=== PATIENT | female | born 1990 | race American Indian/Alaskan Native ===

== ENCOUNTER 2019-07-07 17:12 | Emergency (ER) | payer OTHER ==
[2019-07-07 19:21] LABS: Bilirubin,Urine NEG (Negative); Blood,Urine NEG (Negative); Color,Urine Yellow (Yellow); Hyaline Casts,Urine 1 /LPF; Mucus,Urine 3+ /HPF; Urobilinogen,Urine < 2.0 mg/dL (<2.0)
[2019-07-07 21:25] VITALS: BP 130/92
[2019-07-07] MEDS ORDERED: DICYCLOMINE 20 MG TAB PO ONE (22:11)
[2019-07-07] MEDS ORDERED: ONDANSETRON 4 MG ODT TAB PO ONE (22:11)
[2019-07-07] MEDS ORDERED: FAMOTIDINE 20 MG TAB PO ONE (22:11)
[2019-07-07 22:42] LABS: Hematocrit 36.3 % (30.3-42.9); Hemoglobin 11.7 gm/dl (10.1-14.3); Mean Corpuscular HGB Conc 32 % (30-34); Mean Corpuscular Volume 92 fl (79-97); Platelet Count 302 K/mm3 (140-440); Red Blood Count 3.96 M/mm3 (3.65-5.03); Red Cell Distribution Width 13.1 % (13.2-15.2)
[2019-07-07 22:57] LABS: Alanine Aminotransferase 7 units/L (7-56); Albumin 4.1 g/dL (3.9-5); BUN/Creatinine Ratio 17; Blood Urea Nitrogen 10 mg/dL (7-17); Hemolysis Index 24
[2019-07-07 23:20] LABS: Platelet Estimate Consistent w Auto; RBC Morphology Normal; Total Cells Counted 100
--- NOTE | 2019-07-08 04:00 | Ultrasound Report ---
ULTRASOUND ABDOMEN, LIMITED (RIGHT UPPER QUADRANT) INDICATION: Right upper quadrant pain COMPARISON: None available. FINDINGS: Pancreas: Visualized portion shows no significant abnormality. Liver: Normal. Gallbladder: Normal. Bile ducts: Normal. Common Bile Duct measures 3 mm. Free fluid: None. Additional Findings: None. IMPRESSION: 1. No sonographic abnormality of the right upper quadrant. Signer Name: Tito Bruno MD Signed: 07/08/2019 3:56 AM Workstation Name: [id number]
--- NOTE | 2019-07-08 04:01 | Ultrasound Report ---
Pelvic ultrasound with Doppler INDICATION: Pelvic pain FINDINGS: No significant free pelvic fluid. The uterus measures 7 x 4 x 3 cm with endometrial thickne ss measuring about 10 mm. Both ovaries contain multiple cystic lesions. One of the largest is located within the right ovary measuring 5.5 cm in greatest diameter. Normal Doppler flow is noted within julián th ovaries IMPRESSION: Large, moderately complex right ovarian cyst measuring 5.5 cm in diameter. Several smalle r minimally complex cyst are present within the left ovary. No evidence of ovarian torsion. Signer Name: Tito Bruno MD Signed: 07/08/2019 3:57 AM Workstation Name: [id number]
[2019-07-08] MEDS ORDERED: ACETAMINOPHEN 500 MG TAB PO ONE (04:46)
[2019-07-08] MEDS ORDERED: KETOROLAC 30 MG/1 ML INJ IM ONE (04:46)
--- NOTE | 2019-07-08 04:49 | Emergency Department Report ---
ED Abdominal Pain HPI - General Chief Complaint: Abdominal Pain Stated Complaint: PELVIC PAIN Source: patient Mode of arrival: Ambulatory Limitations: No Limitations - History of Present Illness Initial Comments: Patient is a 28-year-old -[place] female with no past medical history who presents to the ED with complaint of acute onset persistent diffuse lower abdominal pain, right upper quadrant and epigastric pain with intermittent nausea and vomiting for 5 days worse in the last 12 hours. Patient denies dysuria, urinary frequency and urgency, vaginal bleeding, vaginal discharge, low back pain, dizziness, fever, chills, cough, chest pain or shortness of breath. MD Complaint: abdominal pain, other (nausea and vomiting) -: Sudden, days(s) (5) Location: RUQ, LLQ, RLQ, suprapubic Radiation: RUQ, LLQ, RLQ, suprapubic Migration to: no migration Severity: severe Severity scale (0 -10): 8 Quality: cramping, sharp Consistency: constant Improves With: nothing Worsens With: nothing Associated Symptoms: denies other symptoms, nausea, vomiting. denies: diarrhea, fever, chills, constipation, dysuria, hematemesis, hematochezia, melena - Related Data LMP Date: 06/30/19 Previous Rx's Medication Instructions Recorded Last Taken Type metroNIDAZOLE 0.75%(NF) [Metrogel 1 applicatio TP QDAY #1 tube 10/02/14 Unknown Rx 0.75% TOPICAL] Ketorolac [Toradol] 10 mg PO Q8H PRN #20 tablet 07/08/19 Unknown Rx Ondansetron [Zofran Odt] 4 mg PO Q6HR PRN #15 tab.rapdis 07/08/19 Unknown Rx Sulfamethoxazole/Trimethoprim 1 each PO Q12H #20 tablet 07/08/19 Unknown Rx [Bactrim DS TAB] traMADoL [Ultram] 50 mg PO Q6HR PRN #12 tablet 07/08/19 Unknown Rx Allergies Allergy/AdvReac Type Severity Reaction Status Date / Time No Known Allergies Allergy Verified 10/02/14 14:33 ED Review of Systems ROS: Stated complaint: PELVIC PAIN Other details as noted in HPI Constitutional: denies: chills, fever Eyes: denies: eye pain, eye discharge, vision change ENT: denies: ear pain, throat pain Respiratory: denies: cough, shortness of breath, wheezing Cardiovascular: denies: chest pain, palpitations Endocrine: no symptoms reported Gastrointestinal: abdominal pain, nausea, vomiting. denies: diarrhea, constipation, hematemesis, hematochezia Genitourinary: denies: urgency, dysuria, discharge Musculoskeletal: denies: back pain, joint swelling, arthralgia Skin: denies: rash, lesions Neurological: denies: headache, weakness, paresthesias Psychiatric: denies: anxiety, depression Hematological/Lymphatic: denies: easy bleeding, easy bruising ED Past Medical Hx - Past Medical History Previous Medical History?: No - Surgical History Past Surgical History?: No - Social History Smoking Status: Never Smoker Substance Use Type: Alcohol - Medications Home Medications: Home Medications Medication Instructions Recorded Confirmed Last Taken Type metroNIDAZOLE 0.75%(NF) [Metrogel 1 applicatio TP QDAY #1 tube 10/02/14 Unknown Rx 0.75% TOPICAL] Ketorolac [Toradol] 10 mg PO Q8H PRN #20 tablet 07/08/19 Unknown Rx Ondansetron [Zofran Odt] 4 mg PO Q6HR PRN #15 tab.rapdis 07/08/19 Unknown Rx Sulfamethoxazole/Trimethoprim 1 each PO Q12H #20 tablet 07/08/19 Unknown Rx [Bactrim DS TAB] traMADoL [Ultram] 50 mg PO Q6HR PRN #12 tablet 07/08/19 Unknown Rx ED Physical Exam - General Limitations: No Limitations General appearance: alert, in no apparent distress - Head Head exam: Present: atraumatic, normocephalic, normal inspection - Eye Eye exam: Present: normal appearance, PERRL, EOMI Pupils: Present: normal accommodation - ENT ENT exam: Present: normal exam, normal orophraynx, mucous membranes moist, TM's normal bilaterally, normal external ear exam - Neck Neck exam: Present: normal inspection, full ROM - Respiratory Respiratory exam: Present: normal lung sounds bilaterally. Absent: respiratory distress, wheezes, rhonchi, chest wall tenderness, decreased breath sounds, prolonged expiratory - Cardiovascular Cardiovascular Exam: Present: regular rate, normal rhythm, normal heart sounds. Absent: systolic murmur, diastolic murmur, rubs, gallop - GI/Abdominal GI/Abdominal exam: Present: soft, tenderness (Palpable diffuse lower abdomen tenderness; also RUQ and epigastric tendernesss), normal bowel sounds. Absent: guarding, rebound - Extremities Exam Extremities exam: Present: normal inspection, full ROM, normal capillary refill - Back Exam Back exam: Present: normal inspection, full ROM. Absent: CVA tenderness (L), muscle spasm, paraspinal tenderness - Neurological Exam Neurological exam: Present: alert, oriented X3, CN II-XII intact, normal gait, reflexes normal - Psychiatric Psychiatric exam: Present: normal affect, normal mood - Skin Skin exam: Present: warm, dry, intact, normal color. Absent: rash ED Course Vital Signs 07/07/19 07/07/19 18:29 21:23 Temperature 98.7 F 98.6 F Pulse Rate 71 70 Respiratory 18 18 Rate Blood Pressure 123/78 130/92 O2 Sat by Pulse 99 100 Oximetry ED Medical Decision Making - Lab Data Result diagrams: 07/07/19 22:21 07/07/19 22:21 - Radiology Data Radiology results: report reviewed, [place] [address] Ultrasound Report Signed Patient: AILEEN STOKES MR#: [id number] : 1990 Acct:[id number] Age/Sex: 28 / F ADM Date: 07/07/19 Loc: ED Attending Dr: Ordering Physician: JEAN-CLAUDE RVIAS Date of Service: 07/07/19 Procedure(s): US pelvic complete Accession Number(s): [id number] cc: JEAN-CLAUDE RIVAS Pelvic ultrasound with Doppler INDICATION: Pelvic pain FINDINGS: No significant free pelvic fluid. The uterus measures 7 x 4 x 3 cm with endometrial thickness measuring about 10 mm. Both ovaries contain multiple cystic lesions. One of the largest is located within the right ovary measuring 5.5 cm in greatest diameter. Normal Doppler flow is noted within both ovaries IMPRESSION: Large, moderately complex right ovarian cyst measuring 5.5 cm in diameter. Several smaller minimally complex cyst are present within the left ovary. No evidence of ovarian torsion. Signer Name: Tito Bruno MD Signed: 07/08/2019 3:57 AM Workstation Name: [id number] Transcribed By: BC Dictated By: Tito Bruno MD Electronically Authenticated By: Tito Bruno MD Signed Date/Time: 07/08/19356 DD/ 5 TD/TT: ................................................................................ ............................................................ Findings [facility] [address] [place] [address] Ultrasound Report Signed Patient: AILEEN STOKES MR#: [id number] : 1990 Acct:[id number] Age/Sex: 28 / F ADM Date: 07/07/19 Loc: ED Attending Dr: Ordering Physician: JEAN-CLAUDE RIVAS Date of Service: 07/07/19 Procedure(s): US abdomen limited Accession Number(s): [id number] cc: JEAN-CLAUDE RIVAS ULTRASOUND ABDOMEN, LIMITED (RIGHT UPPER QUADRANT) INDICATION: Right upper quadrant pain COMPARISON: None available. FINDINGS: Pancreas: Visualized portion shows no significant abnormality. Liver: Normal. Gallbladder: Normal. Bile ducts: Normal. Common Bile Duct measures 3 mm. Free fluid: None. Additional Findings: None. IMPRESSION: 1. No sonographic abnormality of the right upper quadrant. Signer Name: Tito Bruno MD Signed: 07/08/2019 3:56 AM Workstation Name: [id number] Transcribed By: BC Dictated By: Tito Bruno MD Electronically Authenticated By: Tito Bruno MD Signed Date/Time: 07/08/19355 DD/ 4 - Medical Decision Making This is a 28-year-old -[place] female no past medical history presented to the ED with complaint of acute onset diffuse lower abdominal pain and right upper quadrant abdominal pain for the last 5 days with nausea and vomiting intermittently. In the ED, patient is alert and oriented 3 and is not in distress. Lab test results were reviewed and are nonactionable except for urinalysis that showed acute urinary tract infection. Gallbladder ultrasound was unremarkable with no gallstones. Pelvic ultrasound shows a large, moderately complex right ovarian cyst measuring 5.5 cm in diameter. Several smaller minimally complex cyst are present within the left ovary. No evidence of ovarian torsion. Patient was treated for pain in the ED as well as nausea and vomiting. On reevaluation, patient's pain is well controlled with medication, patient resting comfortably on the pain and sleeping. Patient was discharged home on pain medications and advised to follow-up with [facility] physician in 7-10 days for reevaluation or return to the ED immediately if symptoms get worse. - Differential Diagnosis Gallstones; Ovarian cysts; UTI; Tubovarian torsion; Ectopic Critical care attestation.: If time is entered above; I have spent that time in minutes in the direct care of this critically ill patient, excluding procedure time. ED Disposition Clinical Impression: Acute urinary tract infection Abdominal pain Qualifiers: Abdominal location: lower abdomen, unspecified Qualified Code(s): R10.30 - Lower abdominal pain, unspecified Ovarian cyst Qualifiers: Laterality: right Qualified Code(s): N83.201 - Unspecified ovarian cyst, right side Disposition: TO HOME OR SELFCARE Is pt being admited?: No Does the pt Need Aspirin: No Condition: Stable Instructions: Abdominal Pain (ED), Ovarian Cyst (ED), Urinary Tract Infection in Women (ED) Additional Instructions: Take medication with food, drink plenty fluids and follow-up. Primary care physician in 5-7 days for reevaluation. Consider following up also with the [facility] physician in 7-10 days for further evaluation. Return to the ED immediately if symptoms get worse. Prescriptions: Sulfamethoxazole/Trimethoprim [Bactrim DS TAB] 1 each PO Q12H #20 tablet Ketorolac [Toradol] 10 mg PO Q8H PRN #20 tablet PRN Reason: Pain traMADoL [Ultram] 50 mg PO Q6HR PRN #12 tablet PRN Reason: Pain Ondansetron [Zofran Odt] 4 mg PO Q6HR PRN #15 tab.rapdis PRN Reason: Nausea Referrals: [facility] [Outside] - 3-5 Days Forms: Work/School Release Form(ED) Time of Disposition: 04:51 Print Language: LAO
== END 2019-07-08 05:15 | disposition home or self-care (01) ==
LOC: ED 17:12
DX: N39.0 Urinary tract infection, site not specified (principal); N83.201 Unspecified ovarian cyst, right side; Z79.899 Other long term (current) drug therapy
CPT/HCPCS: 36415; 76705; 76856; 80053; 81001; 83690; 85007; 85025; 87086; 96372; 99284; J1885; Q0162